=== PATIENT | female | born 1965 | race Caucasian/White ===

== ENCOUNTER 2018-01-05 11:14 | Emergency (ER) | payer OTHER ==
[2018-01-05 11:45] VITALS: BP 135/93
--- NOTE | 2018-01-05 11:57 | UC ---
Knee Pain HPI - HPI Summary HPI Summary: Patient states she has nonepileptic seizures. Patient states she fell about 3 days ago after one of her nonepileptic seizures has pain in her right knee and her left elbow did not hit her head has been acting her usual self no other complaints - History of Current Complaint Chief Complaint: UCLowerExtremity Stated Complaint: RT KNEE/LT ELBOW COMP Time Seen by Provider: 01/05/18 11:57 Hx Obtained From: Patient Hx Last Menstrual Period: NOVASURE ?: No Onset/Duration: Sudden Onset Severity Initially: Moderate Severity Currently: Moderate Location Of Injury: Right knee and left elbow Pain Intensity: 6 Pain Scale Used: 0-10 Numeric Character: Sharp Aggravating Factor(s): Nothing Alleviating Factor(s): Nothing Associated Signs And Symptoms: Positive: Negative Able to Bear Weight: Yes - Allergies/Home Medications Allergies/Adverse Reactions: Allergies Allergy/AdvReac Type Severity Reaction Status Date / Time adhesive tape Allergy Unknown local rash Verified 01/05/18 11:32 amoxicillin [From Augmentin] Allergy Unknown Nausea Verified 01/05/18 11:32 clavulanic acid Allergy Unknown Nausea Verified 01/05/18 11:32 [From Augmentin] Home Medications: Home Medications Etonogestrel [Nexplanon] 68 mg IMPLANT 01/05/18 [History Confirmed 01/05/18] Meloxicam 7.5 mg PO DAILY 01/05/18 [History Confirmed 01/05/18] Naproxen TAB* [Naprosyn 250 mg TAB*] 500 mg PO Q8H PRN 01/05/18 [History Confirmed 01/05/18] hydrOXYzine HCL TAB* [Atarax 25 MG TAB*] 25 mg PO TID PRN 01/05/18 [History Confirmed 01/05/18] metFORMIN* [Glucophage 500 MG TAB *] 500 mg PO BID 01/05/18 [History Confirmed 01/05/18] PMH/Surg Hx/FS Hx/Imm Hx Previously Healthy: No - arthritis, nonepileptic seizures Endocrine History: Diabetes Cardiovascular History: Hypertension GI/ History: Gastroesophageal Reflux Psychological History: Depression - Surgical History Surgical History: Yes Surgery Procedure, Year, and Place: GASTRIC BYPASS 2008, VEIN ABLATION LT LEG 2009, TMJ, APPY, CHOLECYSTECTOMY. RIGHT KNEE ARTHOSCOPY 1987 - Family History Known Family History: Positive: Hypertension, Other - CVA, OTHER VASCULAR DZ - Social History Occupation: Works From/At Home Lives: With Family Alcohol Use: Rare Substance Use Type: None Smoking Status (MU): Never Smoked Tobacco Review of Systems Constitutional: Negative Skin: Negative Eyes: Negative ENT: Negative Respiratory: Negative Cardiovascular: Negative Gastrointestinal: Negative Genitourinary: Negative Motor: Negative Neurovascular: Negative Musculoskeletal: Arthralgia - right knee and left elbow Neurological: Negative Psychological: Negative Is Patient Immunocompromised?: No All Other Systems Reviewed And Are Negative: Yes Physical Exam Triage Information Reviewed: Yes Appearance: Well-Appearing, No Pain Distress, Well-Nourished Vital Signs: Initial Vital Signs Temp 98.1 F 01/05/18 11:37 Pulse 92 01/05/18 11:37 Resp 18 01/05/18 11:37 BP 135/93 01/05/18 11:37 Pulse Ox 97 01/05/18 11:37 Vital Signs Reviewed: Yes Eye Exam: Normal Eyes: Positive: Conjunctiva Clear ENT Exam: Normal ENT: Positive: Normal ENT inspection, Hearing grossly normal. Negative: Trismus , Muffled voice, Hoarse voice Dental Exam: Normal Neck exam: Normal Neck: Positive: Supple, Nontender, No Lymphadenopathy Respiratory Exam: Normal Respiratory: Positive: Chest non-tender, Lungs clear, Normal breath sounds, No respiratory distress Cardiovascular Exam: Normal Cardiovascular: Positive: RRR, No Murmur, Pulses Normal, Brisk Capillary Refill Musculoskeletal Exam: Normal Musculoskeletal: Positive: Strength Intact, ROM Intact, No Edema Neurological Exam: Normal Neurological: Positive: Alert, Muscle Tone Normal Psychological Exam: Normal Skin Exam: Normal Diagnostics - Radiology No standard instances Xray Interpretation: No Acute Changes Radiology Interpretation Completed By: ED Physician, Radiologist - 15 is no up for D Knee Pain Course/Dx - Course Course Of Treatment: beverley wrap, rice, tylenol, follow with pcp - Differential Dx/Diagnosis Provider Diagnoses: right knee and left elbow contusion Discharge - Sign-Out/Discharge Documenting (check all that apply): Discharge - Discharge Plan Condition: Stable Disposition: HOME Patient Education Materials: Knee Pain (ED), Arthritis (ED) Referrals: Cecily Sapp MD [Primary Care Provider] - 4 Days Additional Instructions: Follow with primary care doctor for recheck. He had no evidence of fractures in your knee or elbow you certainly do have arthritis. Gentle non-stressful exercise including water exercises can be very helpful. The [facility] Christal Arango might be a good resource for your - Billing Disposition and Condition Condition: STABLE Disposition: HOME
--- NOTE | 2018-01-05 12:37 | RAD ---
HISTORY: Left elbow pain, subacute trauma COMPARISONS: None VIEWS: 4, Frontal, lateral, and oblique views of the left elbow FINDINGS: BONE DENSITY: Normal. BONES: There is no displaced fracture. JOINTS: There is no arthropathy. ALIGNMENT: There is no dislocation. SOFT TISSUES: Unremarkable. OTHER FINDINGS: None. IMPRESSION: NO ACUTE OSSEOUS INJURY. IF SYMPTOMS PERSIST, RECOMMEND REPEAT IMAGING.
--- NOTE | 2018-01-05 12:39 | RAD ---
INDICATION: Right knee pain COMPARISON: None TECHNIQUE: AP, lateral, tunnel, and sunrise views were obtained. FINDINGS: There are no acute bony findings. There is minor spurring tibial spines and minor spurring of the lateral tibial plateau. There is minor patellofemoral spurring. There is no significant joint effusion. IMPRESSION: MINOR OSTEOARTHRITIS. NO ACUTE FINDINGS
== END 2018-01-05 13:05 | disposition home or self-care (01) ==
LOC: UCCORT 11:14
DX: S80.01XA Contusion of right knee, initial encounter (principal); S50.02XA Contusion of left elbow, initial encounter; W19.XXXA Unspecified fall, initial encounter; Y92.9 Unspecified place or not applicable; Z88.3 Allergy status to other anti-infective agents
CPT/HCPCS: 99212; G0463